=== PATIENT | male | born 1990 | race Caucasian/White ===

== ENCOUNTER 2016-10-11 23:05 | Emergency (ER) | payer SELFPAY ==
[~2016-10-11] VITALS: Ht 182.9 cm; Wt 100.0 kg
[~2016-10-11 23:05] MED LIST: LICE CREAM RIN120 ML TP; [UNRECOGNIZED DRUG - REMARK] MC
[2016-10-12] MEDS ORDERED: NORCO 5/3251 TABLET PO (00:22)
[2016-10-12] MEDS ORDERED: NAPROSYN500 MG PO (00:22)
[2016-10-12 00:56] VITALS: BP 128/70
== END 2016-10-12 00:57 | disposition home or self-care (01) ==
LOC: EME 23:05
DX: M25.511 Pain in right shoulder (principal); W18.30XA Fall on same level, unspecified, initial encounter; Y93.K1 Activity, walking an animal; F17.200 Nicotine dependence, unspecified, uncomplicated
CPT/HCPCS: 73030; 99281; 99283

== ENCOUNTER 2016-11-27 14:17 | Emergency (ER) | payer SELFPAY ==
[~2016-11-27] VITALS: Ht 185.4 cm; Wt 106.0 kg
[~2016-11-27 14:17] MED LIST changes: +NAPROSYN500 MG PO; +NORCO 5/3251 TABLET PO
[2016-11-27 14:59] LABS: HEMATOCRIT 47.7 % (38.0-50.0); MCHC 33.1 G/DL (30.0-36.0); MCV 90.7 FL (86-99); MEAN PLAT.VOLUME 10.3 uM^3 (9.0-12.4); PLATELET COUNT 347 K/uL (156-360); RBC DIS.WIDTH-CV 12.7 % (11.8-14.6); RBC DIS.WIDTH-SD 42.5 % (39-53); RED BLOOD COUNT 5.26 M/uL (4.00-5.50); WHITE BLOOD COUNT 7.2 K/uL (4.1-10.2)
[2016-11-27 15:01] LABS: CHLORIDE 101 mEq/L (99-109); SODIUM 138 mEq/L (136-147)
[2016-11-27 15:03] LABS: GLUCOSE 95 mg/dL (70-99)
[2016-11-27 15:05] LABS: ANION GAP 11 MEQ/L (2-14); TOTAL BILIRUBIN 0.5 mg/dL (0.0-1.0)
[2016-11-27 15:07] LABS: ALKALINE PHOSPHATASE 115 IU/L (3-129); GFR ESTIMATE (CALCULATED) > 59 mL/min/
[2016-11-27 15:08] LABS: UREA NITROGEN (BUN) 8 mg/dL (9-23)
[2016-11-27 16:07] LABS: INFLUENZA A VIRAL ANTIGEN NEGATIVE; INFLUENZA B VIRAL ANTIGEN NEGATIVE
[2016-11-27 17:02] LABS: ADD MIUA? YES; BILIRUBIN NEGATIVE; BLOOD NEGATIVE; COLOR YELLOW ((YELLOW)); GLUCOSE (STRIP) NEGATIVE; KETONES NEGATIVE; LEUKOCYTES NEGATIVE; NITRITE NEGATIVE; PROTEIN (STRIP) NEGATIVE; SPECIFIC GRAVITY 1.019 (1.000-1.030); UROBILINOGEN 0.2 MG/DL (0.2-1.0)
[2016-11-27 17:06] LABS: BACTERIA RARE /HPF; EPITHELIAL CELLS RARE /HPF; MUCUS 1+ /LPF; RED BLOOD CELLS 0-5 /HPF (0-5); UCUL ADDED? NO; WHITE BLOOD CELLS 0-5 /HPF (0-5)
[2016-11-27] MEDS ORDERED: ZOFRAN ODT4 MG PO (17:22)
[2016-11-27 17:58] VITALS: BP 115/80
== END 2016-11-27 17:59 | disposition home or self-care (01) ==
LOC: EME 14:17
PROVIDERS: Physician Assistant
DX: R11.2 Nausea with vomiting, unspecified (principal); R05 Cough
CPT/HCPCS: 71020; 80053; 81003; 85027; 87502; 99281; 99283

== ENCOUNTER 2017-08-14 22:06 | Emergency (ER) | payer BC ==
[~2017-08-14] VITALS: Ht 185.4 cm; Wt 102.5 kg
[~2017-08-14 22:06] MED LIST changes: +ZOFRAN ODT4 MG PO
[2017-08-14] MEDS ORDERED: NORCO 7.5/321 TABLET PO (23:42)
[2017-08-14] MEDS ORDERED: MOTRIN800 MG PO (23:42)
[2017-08-15 00:01] VITALS: BP 144/86
== END 2017-08-15 00:02 | disposition home or self-care (01) ==
LOC: EME 22:06
DX: S80.02XA Contusion of left knee, initial encounter (principal); M76.52 Patellar tendinitis, left knee; M23.92 Unspecified internal derangement of left knee; V19.9XXA Pedal cyclist (driver) (passenger) injured in unspecified traffic accident, initial encounter; Y93.55 Activity, bike riding
CPT/HCPCS: 73564; 99281; 99283